=== PATIENT | female | born 1935 | race Caucasian/White ===

== ENCOUNTER 2016-04-19 09:15 | Outpatient (CLI) | payer MEDICARE, BC ==
[2016-04-19 09:51] LABS: #Basophils 0.1 thou/uL (0.0-0.2); #Eosinphils 0.1 thou/uL (0.0-0.7); #Lymphocytes 1.6 thou/uL (1.20-3.40); #Monocytes 0.7 thou/uL (0.11-0.59); #Neutrophils 4.1 thou/uL (1.40-6.50); %Basophils 0.9 % (0.0-1.0); %Eosinophils 2.1 % (0.0-10.0); %Lymphocytes 24.9 % (21.0-51.0); %Monocytes 10.1 % (0.0-10.0); Hematocrit 39.7 % (36.0-47.0); Mean Platelet Volume 7.8 fL (7.4-10.4); Red Blood Cell (RBC) Count 4.02 mill/uL (4.20-5.40); White Blood Cell (WBC) Count 6.6 thou/uL (4.8-10.8)
[2016-04-19 10:12] LABS: Anion Gap 13 mmol/L (10-20); BUN (Urea Nitrogen) 29 mg/dL (9.8-20.1); Calc. Creatinine Clearance 0 mL/min (70-130); Calcium 9.4 mg/dL (7.8-10.44); Carbon Dioxide 24 mmol/L (23-31); Chloride 108 mmol/L (98-107); Estimated GFR-MDRD 60
== END 2016-04-19 09:16 | disposition home or self-care (01) ==
LOC: NAV LAB 09:15
PROVIDERS: ATTEND Family Medicine
DX: K21.9 Gastro-esophageal reflux disease without esophagitis (principal); E11.9 Type 2 diabetes mellitus without complications; J30.9 Allergic rhinitis, unspecified; I10 Essential (primary) hypertension
CPT/HCPCS: 36415; 80048; 85025

== ENCOUNTER 2016-08-28 13:10 | Outpatient (CLI) | payer MEDICARE, BC ==
[2016-08-28 13:31] LABS: #Basophils 0.1 thou/uL (0.0-0.2); #Eosinphils 0.2 thou/uL (0.0-0.7); #Lymphocytes 2.3 thou/uL (1.20-3.40); #Monocytes 0.7 thou/uL (0.11-0.59); %Basophils 0.9 % (0.0-1.0); %Eosinophils 2.5 % (0.0-10.0); %Lymphocytes 31.7 % (21.0-51.0); %Monocytes 9.7 % (0.0-10.0); %Neutrophils 55.2 % (42.0-75.0); Hemoglobin 13.3 g/dL (12.0-16.0); Mean Corpuscular HGB CONC 33.2 g/dL (32.0-36.0); Mean Corpuscular Hemoglobin 30.9 pg (27.0-31.0); Mean Corpuscular Volume 92.9 fl (81.0-99.0); Mean Platelet Volume 7.8 fL (7.4-10.4); Platelet Count 171 thou/uL (130-400); RBC Distribution Width 12.9 % (11.5-14.5); Red Blood Cell (RBC) Count 4.32 mill/uL (4.20-5.40); White Blood Cell (WBC) Count 7.3 thou/uL (4.8-10.8)
[2016-08-28 13:40] LABS: ALT (SGPT) 19 U/L (8-55); AST (SGOT) 27 U/L (5-34); Albumin 4.3 g/dL (3.4-4.8); Alkaline Phosphatase 51 U/L (40-150); Anion Gap 16 mmol/L (10-20); BUN (Urea Nitrogen) 28 mg/dL (9.8-20.1); Bilirubin, Direct 0.3 mg/dL (0.1-0.3); Calc. Creatinine Clearance 0 mL/min (70-130); Carbon Dioxide 25 mmol/L (23-31); Cardiac Risk 3.7 (Less than 4.5); Chloride 101 mmol/L (98-107); Cholesterol 194 mg/dl (< 200 Desired); Estimated GFR-MDRD 58; Glucose 110 mg/dL (83-110); HDL Cholesterol 52 mg/dL (>60 Neg Risk); Hemoglobin A1c 5.9 % (4.0-6.0); LDL Cholesterol, Calculated 120 mg/dL; Potassium 4.4 mmol/L (3.5-5.1); Protein, Total 7.8 g/dL (6.0-8.3); Sodium 138 mmol/L (136-145); Triglycerides 109 mg/dL (Less than 150)
== END 2016-08-28 13:11 | disposition home or self-care (01) ==
LOC: NAVSJIPCSP 13:10
PROVIDERS: ATTEND Family Medicine
DX: E78.5 Hyperlipidemia, unspecified (principal); E11.9 Type 2 diabetes mellitus without complications; I10 Essential (primary) hypertension; Z79.899 Other long term (current) drug therapy
CPT/HCPCS: 36415; 80048; 80061; 80076; 83036; 84443; 85025

== ENCOUNTER 2016-09-21 19:13 | Emergency (ER) | payer MEDICARE, BC ==
[2016-09-21] MEDS ORDERED: Sodium Chloride 0.9% 500 ML ONE (19:58)
[2016-09-21 20:41] LABS: ALT (SGPT) 23 U/L (8-55); AST (SGOT) 23 U/L (5-34); Albumin 4.3 g/dL (3.4-4.8); Alkaline Phosphatase 50 U/L (40-150); Anion Gap 17 mmol/L (10-20); BUN (Urea Nitrogen) 17 mg/dL (9.8-20.1); Bilirubin, Total 1.1 mg/dL (0.2-1.2); Calc. Creatinine Clearance 0 mL/min (70-130); Calcium 9.9 mg/dL (7.8-10.44); Carbon Dioxide 25 mmol/L (23-31); Chloride 101 mmol/L (98-107); Estimated GFR-MDRD 65; Globulin 3.9 g/dL (2.4-3.5); Glucose 141 mg/dL (83-110); Potassium 3.8 mmol/L (3.5-5.1); Protein, Total 8.2 g/dL (6.0-8.3); Sodium 139 mmol/L (136-145)
[2016-09-21 20:42] LABS: #Basophils 0.1 thou/uL (0.0-0.2); #Lymphocytes 1.8 thou/uL (1.20-3.40); #Monocytes 1.1 thou/uL (0.11-0.59); #Neutrophils 10.5 thou/uL (1.40-6.50); %Basophils 0.5 % (0.0-1.0); %Eosinophils 0.1 % (0.0-10.0); %Lymphocytes 13.2 % (21.0-51.0); %Monocytes 8.2 % (0.0-10.0); %Neutrophils 77.9 % (42.0-75.0); Hemoglobin 12.9 g/dL (12.0-16.0); Mean Corpuscular HGB CONC 33.9 g/dL (32.0-36.0); Mean Corpuscular Hemoglobin 30.5 pg (27.0-31.0); Mean Corpuscular Volume 89.8 fl (81.0-99.0); Mean Platelet Volume 7.5 fL (7.4-10.4); Platelet Count 200 thou/uL (130-400); RBC Distribution Width 12.4 % (11.5-14.5); Red Blood Cell (RBC) Count 4.22 mill/uL (4.20-5.40); White Blood Cell (WBC) Count 13.5 thou/uL (4.8-10.8)
--- NOTE | 2016-09-21 20:50 | RAD ---
PORTABLE CHEST: 09/21/16 HISTORY: Weakness, chest pain. COMPARISON: 03/11/16 study. Postoperative changes of the right lung are again noted. The heart size appears slightly enlarged. T here is elevation of the right hemidiaphragm. The lungs are clear of infiltrates. IMPRESSION: Postop right lung changes. No acute process. POS: [facility]
[2016-09-21 21:03] LABS: Bilirubin Negative (Negative); Blood, Urine Negative (Negative); Clarity Clear (Clear); Glucose, Urine (Dipstick) Negative (Negative); Leukocyte Negative (Negative); Nitrite Negative (Negative); Protein, Urine (Dipstick) Negative (Neg-Trace); Urobilinogen 0.2 mg/dL (0.2-1.0)
== END 2016-09-21 21:39 | disposition home or self-care (01) ==
LOC: NAV ERS 19:13
DX: R53.1 Weakness (principal); R42 Dizziness and giddiness; E11.9 Type 2 diabetes mellitus without complications; E03.9 Hypothyroidism, unspecified; E78.5 Hyperlipidemia, unspecified; I10 Essential (primary) hypertension; Z79.84 Long term (current) use of oral hypoglycemic drugs; Z79.02 Long term (current) use of antithrombotics/antiplatelets; Z79.899 Other long term (current) drug therapy
CPT/HCPCS: 71010; 80053; 81003; 85025; 96360; J7050

== ENCOUNTER 2016-12-25 08:52 | Outpatient (CLI) | payer MEDICARE, BC ==
[2016-12-25 12:52] LABS: #Basophils 0.1 thou/uL (0.0-0.2); #Eosinphils 0.2 thou/uL (0.0-0.7); #Lymphocytes 1.9 thou/uL (1.20-3.40); #Monocytes 0.5 thou/uL (0.11-0.59); #Neutrophils 2.7 thou/uL (1.40-6.50); %Basophils 1.2 % (0.0-1.0); %Eosinophils 3.2 % (0.0-10.0); %Lymphocytes 35.9 % (21.0-51.0); %Monocytes 8.8 % (0.0-10.0); %Neutrophils 50.8 % (42.0-75.0); Hemoglobin 12.8 g/dL (12.0-16.0); Mean Corpuscular HGB CONC 32.2 g/dL (32.0-36.0); Mean Corpuscular Hemoglobin 29.8 pg (27.0-31.0); Mean Corpuscular Volume 92.6 fl (81.0-99.0); Mean Platelet Volume 7.6 fL (7.4-10.4); Platelet Count 174 thou/uL (130-400); RBC Distribution Width 13.2 % (11.5-14.5); White Blood Cell (WBC) Count 5.4 thou/uL (4.8-10.8)
[2016-12-25 13:06] LABS: ALT (SGPT) 22 U/L (8-55); AST (SGOT) 32 U/L (5-34); Albumin 4.2 g/dL (3.4-4.8); Alkaline Phosphatase 59 U/L (40-150); Anion Gap 18 mmol/L (10-20); BUN (Urea Nitrogen) 14 mg/dL (9.8-20.1); Bilirubin, Direct 0.2 mg/dL (0.1-0.3); Bilirubin, Total 0.4 mg/dL (0.2-1.2); Calc. Creatinine Clearance 0 mL/min (70-130); Calcium 9.6 mg/dL (7.8-10.44); Carbon Dioxide 23 mmol/L (23-31); Chloride 105 mmol/L (98-107); Cholesterol 169 mg/dl (< 200 Desired); Estimated GFR-MDRD 64; Glucose 117 mg/dL (83-110); HDL Cholesterol 42 mg/dL (>60 Neg Risk); LDL Cholesterol, Calculated 98 mg/dL; Potassium 4.8 mmol/L (3.5-5.1); Protein, Total 8.1 g/dL (6.0-8.3); Sodium 141 mmol/L (136-145); Triglycerides 147 mg/dL (Less than 150)
[2016-12-25 13:38] LABS: Hemoglobin A1c 6.2 % (4.0-6.0)
[2016-12-25 13:41] LABS: Bilirubin Negative (Negative); Blood, Urine Trace (Negative); Glucose, Urine (Dipstick) Negative (Negative); Leukocyte Large (Negative); Nitrite Negative (Negative); Protein, Urine (Dipstick) Negative (Neg-Trace); Specific Gravity, Urine 1.015 (1.005-1.030); Urobilinogen 0.2 mg/dL (0.2-1.0); pH, Urine 7.5 (5.0-9.0)
[2016-12-25 13:47] LABS: Clarity Hazy (Clear)
[2016-12-25 13:58] LABS: Bacteria/HPF 3+ HPF (None Seen); Crystals/HPF 2+ AMORPH PHOS HPF (Negative); Squamous Epithelial 0-3 HPF (0-3)
[2016-12-25 19:08] LABS: Microalbumin Urine Less than 1.0 mg/dL (0.5-50.0); Microalbumin/Creat Ratio 16.1 mg/g (Less than 30)
== END 2016-12-25 08:53 | disposition home or self-care (01) ==
LOC: NAVSJIPCSP 08:52
PROVIDERS: ATTEND Family Medicine
DX: E78.5 Hyperlipidemia, unspecified (principal); R82.90 Unspecified abnormal findings in urine; E11.9 Type 2 diabetes mellitus without complications; I10 Essential (primary) hypertension; Z79.899 Other long term (current) drug therapy
CPT/HCPCS: 36415; 80048; 80061; 80076; 81003; 81015; 82043; 83036; 84443; 85025; 87086

== ENCOUNTER 2017-01-01 16:01 | Outpatient (CLI) | payer MEDICARE, BC ==
--- NOTE | 2017-01-01 17:52 | RAD ---
LEFT KNEE FOUR VIEWS: HISTORY: Left knee pain and swelling. FINDINGS/IMPRESSION: Degenerative changes are present in the left knee. No fracture, dislocation, or bony destruction is identified. Vascular stents are present in the thigh. POS: [facility]
--- NOTE | 2017-01-02 08:38 | RAD ---
LEFT TIBIA AND FIBULA TWO VIEW: History: Leg pain. Comparison: None. FINDINGS: No acute fracture or malalignment. Soft tissues are unremarkable. Mild vascular calcifications. Mode rate degenerative disease at the medial compartment. IMPRESSION: No acute abnormality. POS: [facility]
== END 2017-01-01 16:02 | disposition home or self-care (01) ==
LOC: NAV RAD 16:01
PROVIDERS: ATTEND Family Medicine
DX: M25.562 Pain in left knee (principal); M79.605 Pain in left leg; M17.12 Unilateral primary osteoarthritis, left knee; Z95.828 Presence of other vascular implants and grafts

== ENCOUNTER 2018-02-01 12:40 | Inpatient (IN) | payer MEDICARE, BC ==
[2018-02-01 14:05] LABS: #Basophils 0.1 thou/uL (0.0-0.2); #Eosinphils 0.1 thou/uL (0.0-0.7); #Lymphocytes 0.9 thou/uL (1.20-3.40); #Monocytes 0.7 thou/uL (0.11-0.59); #Neutrophils 6.8 thou/uL (1.40-6.50); %Basophils 0.8 % (0.0-1.0); %Eosinophils 1.2 % (0.0-10.0); %Lymphocytes 10.8 % (21.0-51.0); %Monocytes 7.7 % (0.0-10.0); %Neutrophils 79.6 % (42.0-75.0); Hemoglobin 12.4 g/dL (12.0-16.0); Mean Corpuscular HGB CONC 32.4 g/dL (32.0-36.0); Mean Corpuscular Volume 92.6 fL (78.0-98.0); Mean Platelet Volume 6.5 fL (7.4-10.4); Platelet Count 256 thou/uL (130-400); RBC Distribution Width 13.2 % (11.5-14.5); Red Blood Cell (RBC) Count 4.13 mill/uL (4.20-5.40); White Blood Cell (WBC) Count 8.6 thou/uL (4.8-10.8)
[2018-02-01 14:24] LABS: ALT (SGPT) 16 U/L (8-55); AST (SGOT) 20 U/L (5-34); Albumin 4.1 g/dL (3.4-4.8); Alkaline Phosphatase 52 U/L (40-150); Anion Gap 17 mmol/L (10-20); BUN (Urea Nitrogen) 13 mg/dL (9.8-20.1); CKMB 2.2 ng/mL (0-6.6); Calc. Creatinine Clearance 0 mL/min (70-130); Calcium 9.6 mg/dL (7.8-10.44); Carbon Dioxide 18 mmol/L (23-31); Chloride 101 mmol/L (98-107); Estimated GFR-MDRD 59; Globulin 3.2 g/dL (2.4-3.5); Glucose 144 mg/dL (83-110); Lipase 20 U/L (8-78); Magnesium 1.4 mg/dL (1.6-2.6); Potassium 4.1 mmol/L (3.5-5.1); Protein, Total 7.3 g/dL (6.0-8.3); Sodium 132 mmol/L (136-145); Troponin I 0.012 ng/mL (< 0.028)
[2018-02-01] MEDS ORDERED: Sodium Chloride 0.9% 2,000 ML ONE (14:39)
[2018-02-01 14:46] LABS: Bilirubin Negative (Negative); Blood, Urine Negative (Negative); Clarity Clear (Clear); Glucose, Urine (Dipstick) Negative (Negative); Leukocyte Large (Negative); Nitrite Negative (Negative); Protein, Urine (Dipstick) Negative (Neg-Trace); Urobilinogen 0.2 mg/dL (0.2-1.0); pH, Urine 5.5 (5.0-9.0)
[2018-02-01 14:56] LABS: RBC/HPF 0-3 HPF (0-3); Squamous Epithelial 21-50 HPF (0-3); WBC/HPF 21-50 HPF (0-3)
[2018-02-01 14:57] LABS: Bacteria/HPF 1+ HPF (None Seen)
--- NOTE | 2018-02-01 15:18 | RAD ---
PORTABLE AP CHEST: Date: 02/01/18 HISTORY: Vomiting. COMPARISON: 09/21/16. FINDINGS: There is persistent elevation of the right hemidiaphragm. Lungs are clear. Vascular calcifications se en thoracic aorta. The cardiac silhouette and pulmonary vasculature are within normal limits for the portable technique of the study. Calcified granuloma is again seen overlying the lateral left mid melissa g zone. Mild deformity of right-sided ribs is again present. Postsurgical changes overlying right cla vicle are again seen. There is pleural density seen at the right lung apex. Surgical clips overlying right hilar region. IMPRESSION: Stable postoperative changes right hemithorax without evidence of an acute cardiopulmonary process. C hest is unchanged from prior exam. POS: [facility]
[2018-02-01] MEDS ORDERED: Piperacillin/Tazobactam 3.375 GM VIAL ONE (15:26)
[2018-02-01] MEDS ORDERED: Sodium Chloride 0.9% 100 ML ONE (15:28)
[2018-02-01] MEDS ORDERED: Sodium Chloride 0.9% 250 ML 250 ML ONE (16:26)
[2018-02-01 17:53] LABS: Lactic Acid 2.1 mmol/L (0.5-2.2)
[2018-02-01 18:00] LABS: Troponin I 0.016 ng/mL (< 0.028)
[2018-02-01 19:55] VITALS: BMI 23.0
[2018-02-01] MEDS ORDERED: Acetaminophen 325 MG TAB PO PRN (20:47)
[2018-02-01] MEDS: Piperacillin/Tazobactam 2.25 GM in Sodium Chloride 0.9% 100 ML IVPB SCH (21:39)
[2018-02-01] MEDS: Sodium Chloride 0.9% 1,000 ML IV SCH (21:40)
[2018-02-01] MEDS: Famotidine 20 MG TAB PO SCH (21:40)
[2018-02-02] MEDS: Piperacillin/Tazobactam 2.25 GM in Sodium Chloride 0.9% 100 ML IVPB SCH ×3 (05:27→21:27)
[2018-02-02] MEDS: Sodium Chloride 0.9% 1,000 ML IV SCH ×2 (05:29→10:30)
[2018-02-02] MEDS: Levothyroxine Sodium 25 MCG TAB PO SCH (05:29)
[2018-02-02 05:39] LABS: #Basophils 0.1 thou/uL (0.0-0.2); #Eosinphils 0.2 thou/uL (0.0-0.7); #Monocytes 0.5 thou/uL (0.11-0.59); #Neutrophils 1.8 thou/uL (1.40-6.50); %Basophils 1.7 % (0.0-1.0); %Eosinophils 5.1 % (0.0-10.0); %Lymphocytes 28.4 % (21.0-51.0); %Monocytes 13.6 % (0.0-10.0); %Neutrophils 51.2 % (42.0-75.0); Hemoglobin 10.7 g/dL (12.0-16.0); Mean Corpuscular HGB CONC 32.4 g/dL (32.0-36.0); Mean Corpuscular Hemoglobin 29.8 pg (27.0-31.0); Mean Platelet Volume 6.7 fL (7.4-10.4); Platelet Count 202 thou/uL (130-400); RBC Distribution Width 13.1 % (11.5-14.5); White Blood Cell (WBC) Count 3.6 thou/uL (4.8-10.8)
[2018-02-02 05:46] LABS: ALT (SGPT) 11 U/L (8-55); AST (SGOT) 16 U/L (5-34); Albumin 3.2 g/dL (3.4-4.8); Alkaline Phosphatase 38 U/L (40-150); Anion Gap 12 mmol/L (10-20); BUN (Urea Nitrogen) 9 mg/dL (9.8-20.1); Calc. Creatinine Clearance 63 mL/min (70-130); Calcium 8.5 mg/dL (7.8-10.44); Carbon Dioxide 21 mmol/L (23-31); Chloride 111 mmol/L (98-107); Estimated GFR-MDRD 79; Globulin 2.4 g/dL (2.4-3.5); Glucose 88 mg/dL (83-110); Potassium 3.6 mmol/L (3.5-5.1); Protein, Total 5.6 g/dL (6.0-8.3); Sodium 140 mmol/L (136-145)
[2018-02-02 06:05] LABS: Bilirubin, Total 0.9 mg/dL (0.2-1.2)
[2018-02-02 06:27] LABS: Bilirubin Negative (Negative); Blood, Urine Trace (Negative); Clarity Clear (Clear); Glucose, Urine (Dipstick) Negative (Negative); Leukocyte Trace (Negative); Nitrite Negative (Negative); Protein, Urine (Dipstick) Negative (Neg-Trace); Urobilinogen 0.2 mg/dL (0.2-1.0)
[2018-02-02 06:37] LABS: RBC/HPF 0-3 HPF (0-3); WBC/HPF 0-3 HPF (0-3)
[2018-02-02 06:38] LABS: Bacteria/HPF Rare-Few HPF (None Seen)
[2018-02-02] MEDS: Famotidine 20 MG TAB PO SCH ×2 (09:06→21:27)
[2018-02-02] MEDS: Clopidogrel Bisulfate 75 MG TAB PO SCH (09:06)
[2018-02-02] MEDS: Cilostazol 100 MG TAB PO SCH ×2 (09:06→15:03)
[2018-02-02] MEDS: Aspirin 81 mg Enteric Coated Tablet PO SCH (09:06)
[2018-02-02] MEDS: Atorvastatin Calcium 20 MG TAB PO SCH (09:06)
[2018-02-02] MEDS: Lisinopril 5 MG TAB PO SCH (09:07)
[2018-02-02] MEDS: metFORMIN XR 500 MG TAB PO SCH (09:07)
[2018-02-02] MEDS: Magnesium Oxide 400 MG TAB PO SCH (09:07)
[2018-02-02] MEDS: Donepezil HCl 5 MG TAB PO SCH (09:07)
--- NOTE | 2018-02-02 09:31 | RAD ---
FRONTAL VIEW CHEST: INDICATION: Sepsis, followup. COMPARISON: Previous day. FINDINGS: Elevation of the right hemidiaphragm remains. There is granulomatous calcification of the lateral le ft mid lung zone. Chronic deformity of the right posterior 6th rib is seen, stable. No significant interval change. IMPRESSION: Stable chest. POS: [facility]
--- NOTE | 2018-02-02 15:15 | HP ---
DATE OF ADMISSION: 02/01/2018 HISTORY OF PRESENT ILLNESS: Severe dizziness, lightheadedness, weakness, fatigue, and vomiting x1. She has denied any dysuria or hematuria. She has denied any chest pain or shortness of breath. She does have a history of peripheral vascular disease with peripheral stents in her legs and of diabetes , but with no history of coronary disease. She was found in the emergency room to have abnormalities of significantly elevated lactate of 3.2 with normal white count, but with urinalysis showing pyuria and bacteria consistent with urinary tract infection and early sepsis. For this reason, she is admi tted to the hospital for IV fluids, antibiotics, and monitoring of her vital signs. Her blood pressu re on admission was normal at 176/75, temperature is 97.6, pulse was 92, respirations 20, O2 saturati on was 95%. PAST MEDICAL HISTORY: Showed that she has the above-mentioned history of diabetes, type 2, with good control; hypothyroidism; hyperlipidemia; hypertension; cancer of the lung, status post right upper l obectomy, chemotherapy, and radiation. PAST SURGICAL HISTORY: Also positive for an appendectomy, hysterectomy, left total knee replacement. Three stents in the right leg and one stent in the left leg. Bladder lift. ALLERGIES: She has a history of allergies to CEPHALEXIN, CODEINE, DARVOCET, SULFA. SOCIAL HISTORY: She lives at home alone, nonsmoker, nondrinker. MEDICATIONS ON ADMISSION: Included levothyroxine 25 mcg daily, Protonix 40 daily, amlodipine 5 daily , Pletal 50 mg daily, lisinopril 5 daily, atorvastatin 20 daily, Plavix 75 daily, metformin 500 at be dtime, donepezil 5 daily, magnesium oxide 250 daily, baby aspirin 1 daily. REVIEW OF SYSTEMS: HEENT: She denies any headaches, dizziness, change in vision or hearing. Pulmon inna: She denies any cough, sputum production, pneumonia, asthma, tuberculosis. Cardiovascular: She denies any chest pain, shortness of breath, orthopnea, edema, or palpitations. Gastrointestinal: S he denies any diarrhea, but does have nausea, vomiting x1. Genitourinary: She denies dysuria, hemat uria, but does have a past history of urinary tract infection. Musculoskeletal: Denies back pain an d leg pain. Neurologic: She reported dizziness and weakness, but with no localized numbness or ting ling of extremities. PHYSICAL EXAMINATION: GENERAL: Patient is an elderly white female, alert, in no acute distress, oriented x3 and cooperativ e and a fair historian. VITAL SIGNS: Showed her to have the above-mentioned blood pressure of 176/75 O2 sats 95% on room air , respirations 20, pulse 92, afebrile. HEENT: Pupils are equal, round, and reactive to light and accommodation. Sclerae are anicteric. Co njunctivae pale. Oral mucous membranes well hydrated. NECK: Supple. There are no nodes or masses. JVPs are not elevated. There is some firmness and ind uration of the right side of the neck. LUNGS: Clear. CARDIAC: Shows regular rhythm. No gallops or murmurs. ABDOMEN: Soft and nontender with no masses or organomegaly. SKIN/EXTREMITIES: Display no edema, clubbing, cyanosis. NEUROLOGICAL: Intact. LABORATORY DATA: Shows the above-mentioned urinalysis, 21-50 white cells, large leukocytes. Sodium is 132, potassium 4.1, chloride 101, bicarbonate is 18, BUN 13, creatinine 0.92, glucose 144, lactic acid 3.2 and after fluid 4 hours later down 2.1, calcium 9.6, magnesium 1.4, total bilirubin 1.0, AST 20, ALT 16, total protein 7.3, albumin 4.1, globulin 3.2. White count 8600, hematocrit 38, hemoglob in 12. Chest x-ray shows no acute infiltrates. ASSESSMENT: An 82-year-old white female, who presents with acute onset of weakness, nausea, and vomi ting with no dysuria, but is found to have pyuria and bacteriuria, elevated lactate, and was felt to have early urosepsis. She was admitted to the hospital for IV fluids and broad-spectrum coverage of urinary tract infection with Zosyn. She is doing much better after admission and IV fluids in the em ergency room and will be monitored for 2 days until cultures return of blood and urine, continuing on IV fluids. Repeat lactate acid and restarted back on home medications except for metformin and will continue on Accu-Cheks to monitor diabetes, and hopefully, we will be able to discontinue IV and IV antibiotics and we will go to oral antibiotics per her request in the next 24 hours.
[2018-02-03] MEDS: Sodium Chloride 0.9% 1,000 ML IV SCH (04:16)
[2018-02-03 05:45] LABS: Troponin I 0.016 ng/mL (< 0.028)
[2018-02-03] MEDS: Levothyroxine Sodium 25 MCG TAB PO SCH (06:10)
[2018-02-03] MEDS: Piperacillin/Tazobactam 2.25 GM in Sodium Chloride 0.9% 100 ML IVPB SCH (06:10)
[2018-02-03] MEDS: metFORMIN XR 500 MG TAB PO SCH (08:24)
[2018-02-03] MEDS: Cilostazol 100 MG TAB PO SCH ×2 (08:24→17:04)
[2018-02-03] MEDS: Lisinopril 5 MG TAB PO SCH (08:24)
[2018-02-03] MEDS: Donepezil HCl 5 MG TAB PO SCH (08:24)
[2018-02-03] MEDS: Magnesium Oxide 400 MG TAB PO SCH (08:24)
[2018-02-03] MEDS: Atorvastatin Calcium 20 MG TAB PO SCH (08:25)
[2018-02-03] MEDS: Famotidine 20 MG TAB PO SCH ×2 (08:25→20:22)
[2018-02-03] MEDS: Aspirin 81 mg Enteric Coated Tablet PO SCH (08:25)
[2018-02-03] MEDS: Clopidogrel Bisulfate 75 MG TAB PO SCH (08:27)
--- NOTE | 2018-02-03 08:41 | PRG ---
DATE OF SERVICE: 02/03/2018 SUBJECTIVE: The patient is sitting up in bed, somewhat confused, but was in no distress, asking when she can be discharged home and when she is going to get her home medications. She has been eating w ell and has had no complaints of nausea, vomiting, fever or chills. OBJECTIVE: VITAL SIGNS: Blood pressure is stable at 152/82, temperature 97, pulse 81, respirations 20, O2 sats 95% on room air. LABORATORY DATA: Repeat troponin yesterday was normal at 0.018. Lactic acid is down to 0.8. Urinal ysis initially showed pyuria, but repeat was negative and urine culture showing no growth at 12 hours yesterday and we will check repeat today. ASSESSMENT: Resolving urinary tract infection, persistent mild dementia, resolving weakness and deco nditioning, stable type 2 diabetes, stable peripheral vascular disease. PLAN: Obtain results of urine culture. Discontinue Zosyn, switched, start Cipro 250 twice daily, di scontinue IV fluids. Ambulate with assistance today, possible discharge tomorrow.
[2018-02-03] MEDS ORDERED: Cipro 250 MG TAB PO SCH (09:00)
[2018-02-03] MEDS ORDERED: Amlodipine 5 MG TAB PO SCH (11:45)
[2018-02-03] MEDS: Cipro 250 MG TAB PO SCH (20:22)
[2018-02-04] MEDS: Levothyroxine Sodium 25 MCG TAB PO SCH (06:19)
[2018-02-04] MEDS: Cipro 250 MG TAB PO SCH ×2 (06:20→20:10)
[2018-02-04] MEDS: Cilostazol 100 MG TAB PO SCH ×2 (08:11→16:25)
[2018-02-04] MEDS: Amlodipine 5 MG TAB PO SCH (08:12)
[2018-02-04] MEDS: Aspirin 81 mg Enteric Coated Tablet PO SCH (08:12)
[2018-02-04] MEDS: Clopidogrel Bisulfate 75 MG TAB PO SCH (08:13)
[2018-02-04] MEDS: Lisinopril 5 MG TAB PO SCH (08:13)
[2018-02-04] MEDS: Atorvastatin Calcium 20 MG TAB PO SCH (08:13)
[2018-02-04] MEDS: Famotidine 20 MG TAB PO SCH ×2 (08:13→20:10)
[2018-02-04] MEDS: Donepezil HCl 5 MG TAB PO SCH (08:13)
[2018-02-04] MEDS: Magnesium Oxide 400 MG TAB PO SCH (08:14)
[2018-02-04] MEDS: metFORMIN XR 500 MG TAB PO SCH (08:14)
--- NOTE | 2018-02-04 18:47 | PRG ---
DATE OF SERVICE: 02/04/2018 DATE OF ADMISSION: 02/01/2018 HISTORY OF PRESENT ILLNESS: Ms. Nur is a very pleasant 82-year-old white female that was admit nimisha over the weekend with confusion and urinary tract infection/sepsis. She was seen by Dr. Carrera started on Zosyn and then switched to Cipro yesterday twice a day. The patient is still very weak, but this seems to be getting better. She has IV fluids, but we will discontinue those today. VITAL SIGNS: This morning reveal blood pressure 159/83, pulse 79, respirations 20, O2 sat 95% and 10 0% on room air, T-max 98.2. LABORATORY: Yesterday revealed white count 3600, hemoglobin 10.7, hematocrit 33.1, platelet count 20 2,000. Sodium 141, potassium 3.6, chloride 111, carbon dioxide 21 with a BUN of 9, creatinine 0.71. Sugar was 88. The patient's lactic acid has gone from 3.2-2.1-1.9 yesterday, 0.8 today. Troponin is negative at 0.016. The patient was found to have 21-50 RBCs and 21-50 WBCs in the emergency room. PHYSICAL EXAMINATION: GENERAL: This is a well-developed, well-nourished, thin white female in no apparent distress at this time. HEENT: Reveals normocephalic, nontraumatic cranium. Pupils equal, round, and reactive. Extraocular movements intact. Nose and throat are slightly dry. NECK: Supple, without mass, nodes or bruits. CHEST: Clear to auscultation, no rales, rhonchi or wheezes are heard. CARDIOVASCULAR: Reveals a regular rate and rhythm without murmurs, gallops or rubs. ABDOMEN: Soft, nontender, without organomegaly, normal bowel sounds are noted. No rebound or guardi ng is noted. GENITOURINARY: Deferred. EXTREMITIES: Reveal no clubbing, cyanosis or edema. IMPRESSION: The patient has some weakness. She requests being discharged tomorrow so her daughter fabrizio otoole pick her up after work tomorrow. Patient will need home health to go back to her home and continue to help with physical therapy, occu pational therapy since she is very weak. PLAN: 1. Awaiting last blood culture and urine culture results. 2. Patient was switched over to Cipro 250 twice daily. 3. Resolving urinary tract infection. 4. Persistent dementia. 5. Type 2 diabetes. 6. Peripheral vascular disease. 7. Generalized weakness. PLAN: 1. Continue to follow the patient's urine cultures should be finished today. 2. Continue Cipro 250 mg for a total of 7 days. 3. Continue physical therapy and occupational therapy. 4. Stress ulcer prophylaxis. 5. Decubitus precautions. 6. Most likely discharge tomorrow morning.
[2018-02-05] MEDS: Levothyroxine Sodium 25 MCG TAB PO SCH (05:48)
[2018-02-05] MEDS: Cipro 250 MG TAB PO SCH (05:49)
[2018-02-05 07:20] VITALS: BP 180/79; TEMP 98.2
[2018-02-05] MEDS: Amlodipine 5 MG TAB PO SCH (08:47)
[2018-02-05] MEDS: Cilostazol 100 MG TAB PO SCH ×2 (08:47→17:11)
[2018-02-05] MEDS: Aspirin 81 mg Enteric Coated Tablet PO SCH (08:48)
[2018-02-05] MEDS: Atorvastatin Calcium 20 MG TAB PO SCH (08:48)
[2018-02-05] MEDS: Clopidogrel Bisulfate 75 MG TAB PO SCH (08:48)
[2018-02-05] MEDS: Magnesium Oxide 400 MG TAB PO SCH (08:49)
[2018-02-05] MEDS: Famotidine 20 MG TAB PO SCH (08:49)
[2018-02-05] MEDS: Donepezil HCl 5 MG TAB PO SCH (08:49)
[2018-02-05] MEDS: Lisinopril 5 MG TAB PO SCH (08:49)
[2018-02-05] MEDS: metFORMIN XR 500 MG TAB PO SCH (08:49)
--- NOTE | 2018-02-05 14:38 | PRG ---
DATE OF SERVICE: 02/05/2018 DATE OF ADMISSION: 02/01/2018 HISTORY OF PRESENT ILLNESS: Ms. Nur is a well-developed, well-nourished, 82-year-old white fem joseph that came to the emergency room with signs of sepsis. She was found to have urinary tract infect ion and was admitted to the hospital under the care of Dr. Carrera since I was out of town. She was initially started on Rocephin and switched over to Cipro. She has gradually gotten better and her b lood cultures x2 and urine cultures are no growth x48 hours. She is presently on Cipro 250 mg twice a day. She has reached maximum medical benefit and is ready for discharge. PHYSICAL EXAMINATION: GENERAL: Reveals a well-developed, well-nourished, very pleasant, thin white female, in no apparent distress at this time. HEENT: Reveals normocephalic, nontraumatic cranium. Pupils are equally round and reactive. Extraoc ular movements intact. Nose and throat are slightly dry. NECK: Supple, without mass, nodes, or bruits. CHEST: Clear to auscultation. No rales, rhonchi, or wheezes are heard. CARDIOVASCULAR: Reveals a regular rate and rhythm without murmurs, gallops, or rubs. ABDOMEN: Soft, nontender, without organomegaly, normal bowel sounds are noted. No rebound or guardi ng is noted. GENITOURINARY: Exam is deferred. EXTREMITIES: Reveal no clubbing, cyanosis, or edema. IMPRESSION: 1. Urinary tract infection with sepsis. 2. Diabetes, type 2, fairly good control. 3. Hypothyroidism. 4. Hyperlipidemia. 5. Hypertension. 6. Prior history of cancer of the lung, status post right upper lobectomy. 7. Status post chemotherapy and radiation. 8. Generalized weakness. 9. Early dementia. PLAN: 1. The patient reached maximum medical benefit and is ready for discharge. 2. Discharged to home on Cipro 250 mg twice a day for 5 more days and a prescription has been called into [facility]. CURRENT MEDICATIONS: 1. Norvasc 5 mg daily. 2. Aspirin 81 mg a day. 3. Atorvastatin 20 mg at bedtime. 4. Pletal also call cilostazol 100 mg twice a day. 5. Ciprofloxacin 250 mg for 5 more days. 6. Plavix 75 mg a day. 7. Donepezil, which is Aricept, 5 mg daily. 8. Famotidine will not be refilled. 9. Levothyroxine 25 mcg a day. 10. Lisinopril 5 mg a day. 11. Mag-Ox 400 mg a day. 12. Metformin 500 mg every day. 13. Protonix 40 mg daily. The patient will be discharged home. I did talk with her daughter about taking her medicines out of the house and keeping them until we can adjust to see how well she does with her new medications. Th e patient should follow up with me in about a week.
== END 2018-02-05 17:37 | disposition home health service (06) | DRG 872 ==
LOC: NAV ERS 12:40 → NAV ACUTE 19:07
PROVIDERS: ADMIT Internal Medicine; ATTEND Internal Medicine
DX: A41.9 Sepsis, unspecified organism (principal); N39.0 Urinary tract infection, site not specified; E11.51 Type 2 diabetes mellitus with diabetic peripheral angiopathy without gangrene; E03.9 Hypothyroidism, unspecified; E78.5 Hyperlipidemia, unspecified; I10 Essential (primary) hypertension; Z85.118 Personal history of other malignant neoplasm of bronchus and lung; Z90.710 Acquired absence of both cervix and uterus; Z96.652 Presence of left artificial knee joint; F03.90 Unspecified dementia, unspecified severity, without behavioral disturbance, psychotic disturbance, mood disturbance, and anxiety; R26.81 Unsteadiness on feet
CPT/HCPCS: 36415; 36416; 71045; 80053; 81001; 81003; 81015; 82553; 83605; 83690; 83735; 84484; 85025; 87040; 87086; 93005; 94760; J2543; J3370; J7050

== ENCOUNTER 2020-05-19 14:54 | Observation (INO) | payer MEDICARE, BC ==
[~2020-05-19 14:54] MED LIST: Iopamidol 370 76% 100 ML VIAL ONE
[2020-05-19 15:19] LABS: #Lymphocytes 1.5 thou/uL (1.20-3.40); #Monocytes 0.6 thou/uL (0.11-0.59); #Neutrophils 4.1 thou/uL (1.40-6.50); %Basophils 0.8 % (0.0-1.0); %Eosinophils 0.7 % (0.0-10.0); %Lymphocytes 23.9 % (21.0-51.0); %Monocytes 9.8 % (0.0-10.0); %Neutrophils 64.8 % (42.0-75.0); Hemoglobin 14.2 g/dL (12.0-16.0); Mean Corpuscular HGB CONC 32.4 g/dL (32.0-36.0); Mean Corpuscular Hemoglobin 30.2 pg (27.0-31.0); Mean Corpuscular Volume 93.1 fL (78.0-98.0); Mean Platelet Volume 6.9 fL (7.4-10.4); Platelet Count 194 thou/uL (130-400); RBC Distribution Width 12.2 % (11.5-14.5); Red Blood Cell (RBC) Count 4.72 mill/uL (4.20-5.40); White Blood Cell (WBC) Count 6.4 thou/uL (4.8-10.8)
--- NOTE | 2020-05-19 15:26 | CT ---
CT BRAIN NONCONTRAST: DATE: 05/19/2020. HISTORY: An 85-year-old female with dementia who presents with acute change and altered mental status. FINDINGS: There is no midline shift or any other mass effect. There is no evidence of acute intracranial hemor rhage, large cortical infarct, obstructive hydrocephalus, or extraaxial fluid collection. The calvar ium is intact. There is diffuse parenchymal volume loss. There are low attenuation areas in the whi te matter. These are nonspecific, but in a patient of this age, they are probably chronic ischemic w candelario matter changes due to microvascular atherosclerosis. There are tiny old lacunar infarctions in the bilateral basal ganglia, caudate nuclei, herrera radiata, and centrum semiovale. All of these chr onic changes have significantly progressed compared to prior CT of 10/06/2008. IMPRESSION: 1) No acute intracranial findings. 2) Involutional changes and chronic ischemic white matter changes. 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 jn [] POS: [facility]
[2020-05-19 15:28] LABS: INR-International Normal Ratio 1.1; Prothrombin Time 14.3 sec (12.0-14.7)
[2020-05-19 15:29] LABS: PTT 29.6 sec (22.9-36.1)
[2020-05-19 15:38] LABS: ALT (SGPT) 21 U/L (8-55); AST (SGOT) 21 U/L (5-34); Albumin 4.2 g/dL (3.4-4.8); Alkaline Phosphatase 58 U/L (40-110); Anion Gap 19 mmol/L (10-20); BUN (Urea Nitrogen) 17 mg/dL (9.8-20.1); Bilirubin, Total 1.2 mg/dL (0.2-1.2); CK (CPK) 61 U/L (29-168); Calc. Creatinine Clearance 0 mL/min (70-130); Calcium 9.5 mg/dL (7.8-10.44); Carbon Dioxide 21 mmol/L (23-31); Chloride 101 mmol/L (98-107); Globulin 3.5 g/dL (2.4-3.5); Glucose 151 mg/dL (83-110); Potassium 4.2 mmol/L (3.5-5.1); Protein, Total 7.7 g/dL (5.8-8.1); Sodium 137 mmol/L (136-145)
--- NOTE | 2020-05-19 15:50 | CT ---
EXAM: CT ANGIOGRAM OF THE HEAD AND NECK INDICATION: Dementia. Increased confusion and wandering around more than normal. COMPARISON: None. TECHNIQUE: CT angiogram of the head and neck are performed in the axial plane. Three-dimensional reformatted caitlin ges are submitted for interpretation. FINDINGS: CTA OF THE HEAD WITH AND WITHOUT CONTRAST: POSTCONTRAST CT OF BRAIN: Pathologic enhancement: No pathologic enhancement the brain. POSTCONTRAST SOFT TISSUE NECK CT: Aerodigestive tract:Aerodigestive tract is patent. No mucosal abnormality. Limited evaluation of the oral cavity due to dental amalgam artifact. Epiglottis has a normal caliber. Preepiglottic fat is preserved. Sinuses: Adequate aeration of the paranasal sinuses and mastoid air cells.. Orbits: Bilateral ocular lens implants are appropriately located. Both globes are intact. Retrobulbar fat is preserved. Symmetric attenuation the optic nerves and ocular rectus muscles. Salivary glands:Symmetric attenuation of the parotid and submandibular glands. There is fatty attenua tion in bilateral parotid glands. Thyroid gland: Appropriate attenuation of the thyroid gland. Lymph nodes: No evidence of lymphadenopathy by size criteria. Paraspinal muscles: Symmetric attenuation of the sternocleidomastoid muscles. Appropriate attenuation of the paraspinal muscles. Cervical spine:Vertebral body height is maintained. No fracture. No significant central canal stenosi s or significant neural foraminal narrowing. Limited evaluation by technique. Upper mediastinum and lung apices: Asymmetric increased soft tissue density in the right periclavicul ar soft tissues extending into the right apical pleura. Findings may represent posttreatment change. Patient does have a history of lung cancer. These findings are similar to a CT from 04/25/2016 . CTA OF THE NECK WITH CONTRAST: Aorta: Atherosclerosis. Common origin of the cervical carotid arteries Right carotid artery: Appropriate enhancement and luminal diameter the origin the right carotid arter y, and common carotid artery. There is short segment mild narrowing of the distal common carotid artery. In the right carotid bifurcation and proximal internal carotid, there is short segment near-o cclusion. There is atherosclerosis involving the mid right internal carotid artery. Limited evaluation of the distal internal carotid artery due to motion degradation. Left carotid: Appropriate enhancement and luminal diameter of the origin of the left carotid artery. There is short segment mild atherosclerosis in the mid left common carotid artery. There is atherosclerosis with short segment severe stenosis involving the proximal left internal carotid arter y. The mid to distal left internal carotid has appropriate enhancement and luminal diameter. Subclavian arteries:Patent. Vertebral arteries:Dominant left vertebral artery. No significant stenosis of the cervical vertebral artery . CTA OF THE BRAIN: Intracranial internal carotid arteries:Atherosclerosis in bilateral cavernous segments . Anterior circulation: Appropriate enhancement and luminal diameter the A1 segments, M1 segments, prox imal A2 segments and proximal MCA branches. Intracranial vertebral arteries: Patent. Bilateral PICA artery origins are unremarkable. Posterior circulation: Both vertebral arteries supply a normal caliber basilar artery. Basilar artery has a superior cerebellar termination. 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 IMPRESSION: 1. 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 2. Short segment severe stenosis involving the left carotid bifurcation and proximal internal carotid artery. 3. No significant stenosis at the level of the [place]. Results of study discussed with Dr. Encarnacion to 05/19/2020 at 3:48 PM Code CR Transcribed Date/Time: 05/19/2020 4:04 PM
[2020-05-19] MEDS ORDERED: Aspirin 325 MG TAB ONE (16:01)
[2020-05-19 16:40] LABS: Bilirubin Negative (Negative); Blood, Urine Trace (Negative); Glucose, Urine (Dipstick) Negative (Negative); Ketone, Urine Negative (Negative); Leukocyte Large (Negative); Nitrite Negative (Negative); Protein, Urine (Dipstick) Trace mg/dL (Neg-Trace); Specific Gravity, Urine 1.025 (1.005-1.030); Urobilinogen 0.2 mg/dL (Less than 2)
[2020-05-19 16:41] LABS: Clarity Hazy (Clear)
[2020-05-19 16:49] LABS: Bacteria/HPF 1+ HPF (None Seen); RBC/HPF 0-3 HPF (0-3); WBC/HPF Greater Than 50 HPF (0-3)
[2020-05-19 16:50] LABS: Calcium Oxalate Crystals 4+ HPF (None Seen)
[2020-05-19] MEDS ORDERED: Sodium Chloride 0.9% 100 ML ONE (16:50)
[2020-05-19] MEDS ORDERED: cefTRIAXone\\ROCEPHIN 1 GM VIAL ONE (16:50)
[2020-05-19 19:07] LABS: SARS-CoV-2 NAA Rapid Test Not Detected (NotDetected)
[2020-05-19 21:34] VITALS: BMI 24.9
[2020-05-19] MEDS: Sodium Chloride 0.9% 1,000 ML IV SCH (21:50)
[2020-05-20] MEDS: Sodium Chloride 0.9% 1,000 ML IV SCH ×2 (05:27→10:17)
[2020-05-20] MEDS ORDERED: Levothyroxine Sodium 25 MCG TAB PO SCH (06:00)
[2020-05-20] MEDS ORDERED: Cilostazol 100 MG TAB PO SCH (07:30)
[2020-05-20] MEDS ORDERED: Lisinopril 5 MG TAB PO SCH (09:00)
[2020-05-20] MEDS ORDERED: Magnesium Oxide 400 MG TAB PO SCH (09:00)
[2020-05-20] MEDS ORDERED: Aspirin 81 mg Enteric Coated Tablet PO SCH (09:00)
[2020-05-20] MEDS ORDERED: Amlodipine 5 MG TAB PO SCH (09:00)
[2020-05-20] MEDS ORDERED: Donepezil HCl 5 MG TAB PO SCH (09:00)
[2020-05-20] MEDS ORDERED: Atorvastatin Calcium 20 MG TAB PO SCH (09:00)
[2020-05-20] MEDS ORDERED: Clopidogrel Bisulfate 75 MG TAB PO SCH (09:00)
[2020-05-20 14:14] VITALS: BP 126/32; TEMP 98.7
[2020-05-20] MEDS ORDERED: cefTRIAXone\\ROCEPHIN 1 GM in Sodium Chloride 0.9% 100 ML IVPB SCH (16:00)
[2020-05-20] MEDS ORDERED: Sulfameth/Trimethoprim DS 800-160mg TAB PO SCH (21:00)
[2020-05-20] MEDS ORDERED: FLU VACC QS2020-21(65YR UP)/PF 240 MCG/0.7 ML SYRINGE IM ONE (21:00)
--- NOTE | 2020-05-21 06:53 | SS ---
DATE OF ADMISSION: 05/19/2020 DATE OF DISCHARGE: 05/20/2020 HISTORY OF PRESENT ILLNESS: This is an 85-year-old female, who was seen in my clinic yesterday for confusion. She was thought to have a UTI and was started on Macrobid; however, she was not able to take any of her doses because she became more confused and was brought in by her son to the ER. In the ER, it was confirmed that she did have a UTI and she also underwent a stroke workup due to concern for a stroke with her confusion. CT angio showed that she has severe near-occlusion of the right carotid bifurcation and proximal internal carotid artery as well as a short segment severe stenosis of the left carotid bifurcation and proximal internal carotid artery. No significant stenosis at the level of the [place]. Brain CT showed no acute intracranial findings, did show old lacunar infarcts. The patient was given Rocephin, started on IV fluids and was admitted for observation and for hydration. Since her admission, the patient has become more alert. She does have baseline dementia; however, her confusion is improving. She is becoming more energetic and is starting to be combative with nursing. She states that she needs to have a bowel movement, but is not wanting to wait for anyone to help her get out of bed. When nursing staff got her up, she was able to support her weight, but did have to hold on for assistance. At this time, the patient has improved significantly from her admission and would benefit from being at home in her own environment. This will help decrease her confusion and agitation in terms of her dementia. Her vital signs have been stable and she is stable to go home as well. I will be on-call this weekend, so if her children have any concerns or any questions, they will be able to call me through the answering service. I will have a followup with her in one week to see how she is doing. PAST MEDICAL HISTORY: Hypertension, dementia, and CAD. DISCHARGE MEDICATIONS: 1. Protonix 40. 2. Levothyroxine 25 mcg. 3. Donepezil 5 mg p.o. daily. 4. Plavix 75 mg p.o. daily. 5. Atorvastatin 20 mg p.o. daily. 6. Cilostazol 100 mg p.o. b.i.d. a.c. 7. Aspirin 81 mg p.o. daily. 8. Amlodipine 5 mg p.o. daily. 9. Magnesium oxide 400 mg p.o. daily. 10. Lisinopril 5 mg p.o. daily. 11. New medication: Bactrim 1 tablet p.o. b.i.d. for five days. FOLLOWUP: She will follow up with me in one week and the family is working on getting her an appointment with her firebrick layer to discuss her CT and MRI findings. DISCHARGE DIET: Heart healthy diet. DISCHARGE ACTIVITY: Fall precautions and activity as tolerated. Job ID: [id number]
== END 2020-05-20 15:17 | disposition home or self-care (01) ==
LOC: NAV ERS 14:54 → NAV ACUTE 19:56
PROVIDERS: ADMIT Family Medicine; ATTEND Family Medicine
DX: N39.0 Urinary tract infection, site not specified (principal); I65.23 Occlusion and stenosis of bilateral carotid arteries; I10 Essential (primary) hypertension; I25.10 Atherosclerotic heart disease of native coronary artery without angina pectoris; F03.90 Unspecified dementia, unspecified severity, without behavioral disturbance, psychotic disturbance, mood disturbance, and anxiety; Z79.02 Long term (current) use of antithrombotics/antiplatelets; Z79.82 Long term (current) use of aspirin; Z79.899 Other long term (current) drug therapy; Z88.1 Allergy status to other antibiotic agents; Z88.2 Allergy status to sulfonamides; Z88.5 Allergy status to narcotic agent; Z88.6 Allergy status to analgesic agent; Z20.822 Contact with and (suspected) exposure to COVID-19
CPT/HCPCS: 0240U; 36416; 70450; 70496; 70498; 80053; 81015; 82550; 84484; 85025; 85610; 85730; 93005; 94760; 96365; G0378; J0696; J3490; J7050; Q9967

== ENCOUNTER 2020-08-18 13:14 | Emergency (ER) | payer MEDICARE, BC ==
[2020-08-18 14:12] LABS: PTT 28.6 sec (22.9-36.1); Prothrombin Time 13.3 sec (12.0-14.7)
[2020-08-18 14:20] LABS: ALT (SGPT) 16 U/L (8-55); AST (SGOT) 17 U/L (5-34); Albumin 4.6 g/dL (3.4-4.8); Alkaline Phosphatase 73 U/L (40-110); Anion Gap 16 mmol/L (10-20); BUN (Urea Nitrogen) 19 mg/dL (9.8-20.1); Bilirubin, Total 0.8 mg/dL (0.2-1.2); Calc. Creatinine Clearance 0 mL/min (70-130); Calcium 10.2 mg/dL (7.8-10.44); Carbon Dioxide 25 mmol/L (23-31); Chloride 102 mmol/L (98-107); Globulin 3.7 g/dL (2.4-3.5); Glucose 173 mg/dL (83-110); Potassium 4.2 mmol/L (3.5-5.1); Protein, Total 8.3 g/dL (5.8-8.1); Sodium 139 mmol/L (136-145)
[2020-08-18 14:24] LABS: Bilirubin Small (Negative); Blood, Urine Negative (Negative); Clarity Clear (Clear); Glucose, Urine (Dipstick) 100 mg/dL (Negative); Ketone, Urine 15 mg/dL (Negative); Leukocyte Negative (Negative); Nitrite Negative (Negative); Protein, Urine (Dipstick) > or equal to 300 mg/dL (Neg-Trace)
[2020-08-18 14:26] LABS: #Basophils 0.1 thou/uL (0.0-0.2); #Lymphocytes 1.1 thou/uL (1.20-3.40); #Monocytes 0.7 thou/uL (0.11-0.59); %Basophils 0.7 % (0.0-1.0); %Eosinophils 0.5 % (0.0-10.0); %Monocytes 6.6 % (0.0-10.0); %Neutrophils 81.2 % (42.0-75.0); Hemoglobin 14.7 g/dL (12.0-16.0); Mean Corpuscular Hemoglobin 29.1 pg (27.0-31.0); Mean Corpuscular Volume 96.9 fL (78.0-98.0); Mean Platelet Volume 7.6 fL (7.4-10.4); Platelet Count 239 thou/uL (130-400); RBC Distribution Width 12.3 % (11.5-14.5); Red Blood Cell (RBC) Count 5.06 mill/uL (4.20-5.40); White Blood Cell (WBC) Count 9.8 thou/uL (4.8-10.8)
[2020-08-18] MEDS ORDERED: Sodium Chloride 0.9% 1,000 ML ONE (14:28)
[2020-08-18 14:45] LABS: Bacteria/HPF Rare-Few HPF (None Seen); RBC/HPF 0-3 HPF (0-3); Specific Gravity, Urine Greater/Equal 1.030 (1.005-1.030)
[2020-08-18] MEDS ORDERED: cefTRIAXone\\ROCEPHIN 1 GM VIAL ONE (15:11)
[2020-08-18 15:12] LABS: Platelet Morphology Comment Appears Adequate; RBC Morphology Normal
== END 2020-08-18 16:42 | disposition short-term general hospital (02) ==
LOC: NAV ERS 13:14
DX: R55 Syncope and collapse (principal); R79.89 Other specified abnormal findings of blood chemistry; E11.9 Type 2 diabetes mellitus without complications; E03.9 Hypothyroidism, unspecified; E78.5 Hyperlipidemia, unspecified; I10 Essential (primary) hypertension; Z79.899 Other long term (current) drug therapy
CPT/HCPCS: 51701; 71045; 80053; 81003; 81015; 83605; 84484; 85025; 85610; 85730; 87040; 87086; 93005; 94760; 96374; J0696; J7050